=== PATIENT | female | born 1980 | race Caucasian/White ===

== ENCOUNTER 2021-08-21 13:25 | Outpatient (CLI) | payer OTHER | END 2021-08-21 13:26 | disposition home or self-care (01) | LOC: CSHMAMMO 13:25 | PROVIDERS: ATTEND Surgery | DX: N60.01 Solitary cyst of right breast (principal) | CPT/HCPCS: 77066; G0279 ==

== ENCOUNTER 2023-02-12 12:37 | Outpatient (CLI) | payer OTHER | END 2023-02-12 12:38 | disposition home or self-care (01) | LOC: CSHULT 12:37 | PROVIDERS: ATTEND Internal Medicine | DX: E22.0 Acromegaly and pituitary gigantism (principal); I51.9 Heart disease, unspecified | CPT/HCPCS: 93306 ==

== ENCOUNTER 2023-05-17 12:38 | Outpatient (CLI) | payer OTHER | END 2023-05-17 12:39 | disposition home or self-care (01) | LOC: CSHULT 12:38 | PROVIDERS: ATTEND Urology | DX: N20.0 Calculus of kidney (principal); R35.0 Frequency of micturition; M25.561 Pain in right knee; N28.89 Other specified disorders of kidney and ureter | CPT/HCPCS: 76770 ==

== ENCOUNTER 2023-05-25 16:24 | Outpatient (CLI) | payer OTHER | END 2023-05-25 16:25 | disposition home or self-care (01) | LOC: CSHCT 16:24 | PROVIDERS: ATTEND Urology | DX: N20.0 Calculus of kidney (principal); N28.89 Other specified disorders of kidney and ureter | CPT/HCPCS: 74178 ==

== ENCOUNTER 2023-09-10 08:41 | Outpatient (CLI) | payer OTHER | END 2023-09-10 08:42 | disposition home or self-care (01) | LOC: CSHCT 08:41 | PROVIDERS: ATTEND Student in an Organized Health Care Education/Training Program | DX: J98.59 Other diseases of mediastinum, not elsewhere classified (principal) | CPT/HCPCS: 71250 ==

== ENCOUNTER → 2024-03-01 | Outpatient (CLI) | payer OTHER | LOC: CSHULT 14:05 | PROVIDERS: ATTEND Family Medicine | DX: E04.1 Nontoxic single thyroid nodule (principal); E07.9 Disorder of thyroid, unspecified | CPT/HCPCS: 76536 ==